=== PATIENT | male | born 2000 | race American Indian/Alaskan Native ===

== ENCOUNTER 2023-04-25 20:19 | Emergency (ER) | payer BC, OTHER ==
[2023-04-25] MEDS ORDERED: Lidocaine 1% with EPINEPHrine 1:200,000 30 ML SDV INJECT STA (20:32)
[2023-04-25] MEDS ORDERED: Lidocaine 1% PF 2 ML SDV INJECT ONE (21:02)
[2023-04-25] MEDS ORDERED: Octyl 2-Cyanoacrylate 1 g/1 mL 1 APPLIC PEN TOP ONE (21:02)
[2023-04-25] MEDS ORDERED: fentaNYL 50 MCG/ML SDV IVPUSH ONE (22:28)
[2023-04-25] MEDS ORDERED: Acetaminophen/oxyCODONE 325-5 MG Tab PO ONE (23:34)
== END 2023-04-25 23:47 | disposition home or self-care (01) ==
LOC: MW.ED 20:19
DX: S02.609A Fracture of mandible, unspecified, initial encounter for closed fracture (principal); S01.81XA Laceration without foreign body of other part of head, initial encounter; F17.210 Nicotine dependence, cigarettes, uncomplicated; Z88.0 Allergy status to penicillin; V00.131A Fall from skateboard, initial encounter; Y93.21 Activity, ice skating
CPT/HCPCS: 12013; 70450; 70486; 72125; 96374; 99284; A9270; J3010; 99283; J3490

== ENCOUNTER 2023-05-01 12:40 | Emergency (ER) | payer BC, OTHER | END 2023-05-01 14:15 | disposition left against medical advice (07) | LOC: MW.ED 12:40 | DX: Z53.21 Procedure and treatment not carried out due to patient leaving prior to being seen by health care provider (principal) ==

== ENCOUNTER 2024-04-10 21:17 | Emergency (ER) | payer BC, OTHER ==
[2024-04-10] MEDS: Ibuprofen 400 MG Tab PO ONE (23:28)
[2024-04-11] MEDS: diphenhydrAMINE 50 MG/ML SDV IVPUSH ONE (00:43)
[2024-04-11 01:11] LABS: BASOPHILS ABSOLUTE AUTO 0.04 K/uL (0.00-0.20); BASOPHILS PERCENT AUTO 0.6 % (0.0-1.0); EOSINOPHILS ABSOLUTE AUTO 0.05 K/uL (0.00-0.45); EOSINOPHILS PERCENT AUTO 0.7 % (0.0-6.0); HEMATOCRIT 43.3 % (42.0-52.0); HEMOGLOBIN 15.2 g/dL (14.0-18.0); IMMATURE GRAN ABSOLUTE AUTO 0.01 K/uL (0.00-0.05); IMMATURE GRAN PERCENT AUTO 0.1 % (0.0-0.4); LYMPHOCYTES ABSOLUTE AUTO 1.73 K/uL (1.00-4.80); LYMPHOCYTES PERCENT AUTO 24.5 % (24.0-44.0); MEAN CORPUSCULAR HEMOGLOBIN 32.1 pg (28.0-32.0); MEAN CORPUSCULAR HGB CONC 35.1 g/dL (32.0-36.0); MEAN CORPUSCULAR VOLUME 91.4 fL (83.0-99.0); MEAN PLATELET VOLUME 10.3 fL (9.4-12.4); MONOCYTES ABSOLUTE AUTO 1.03 K/uL (0.00-0.80); MONOCYTES PERCENT AUTO 14.6 % (0.0-8.0); NEUTROPHILS ABSOLUTE AUTO 4.21 K/uL (1.80-7.70); NEUTROPHILS PERCENT AUTO 59.5 % (41.0-71.0); PLATELET COUNT,PLT 182 K/uL (150-400); RED BLOOD CELL COUNT 4.74 M/uL (4.52-5.90); WHITE BLOOD CELL COUNT,WBC 7.07 K/uL (3.9-11.3)
== END 2024-04-11 02:09 | disposition home or self-care (01) ==
LOC: MW.ED 21:17
DX: G43.909 Migraine, unspecified, not intractable, without status migrainosus (principal); Z90.49 Acquired absence of other specified parts of digestive tract; Z79.899 Other long term (current) drug therapy; Z88.0 Allergy status to penicillin
CPT/HCPCS: 36415; 70450; 83880; 85025; 87428; 96374; 99284; A9270; J1200

== ENCOUNTER 2024-10-18 07:13 | Emergency (ER) | payer BC, OTHER ==
[2024-10-18] MEDS: Tetracaine HCl/PF 0.5% 4 ML Bottle EYELF ONE (07:55)
[2024-10-18] MEDS: Fluorescein 1 MG Ophth Strip EYELF ONE (07:57)
== END 2024-10-18 08:17 | disposition home or self-care (01) ==
LOC: MW.ED 07:13
DX: H10.32 Unspecified acute conjunctivitis, left eye (principal); H00.031 Abscess of right upper eyelid; Z90.49 Acquired absence of other specified parts of digestive tract; Z88.0 Allergy status to penicillin; Z88.8 Allergy status to other drugs, medicaments and biological substances; Z79.899 Other long term (current) drug therapy
CPT/HCPCS: 99282; 99283; J3490